=== PATIENT | female | born 1960 | race Caucasian/White ===

== ENCOUNTER 2022-09-08 12:21 | Emergency (ER) | payer OTHER ==
[~2022-09-08] VITALS: Ht 157.5 cm; Wt 72.6 kg
[~2022-09-08 12:21] MED LIST: AMOX1TAB5 PO; ANTIVERT25 MG; DRAMAMINE50 M1; LANTUS100 U/ML; LASIX40 MG; SUDAFED30 MG; SYNTHROID112 MCG; XANAX1 MG
[2022-09-08] MEDS ORDERED: DUI500 PO (20:06)
[2022-09-08] MEDS ORDERED: ZOFRAN8 MG PO (20:06)
[2022-09-08] MEDS ORDERED: TRAM1TAB98 PO (20:06)
== END 2022-09-08 20:11 | disposition home or self-care (01) ==
LOC: ER 12:21
DX: K58.9 Irritable bowel syndrome, unspecified (principal); N12 Tubulo-interstitial nephritis, not specified as acute or chronic; E11.9 Type 2 diabetes mellitus without complications; Z79.4 Long term (current) use of insulin

== ENCOUNTER 2023-05-22 12:43 | Emergency (ER) | payer OTHER ==
[~2023-05-22] VITALS: Ht 157.5 cm; Wt 70.8 kg
[~2023-05-22 12:43] MED LIST changes: +DUI500 PO; +TRAM1TAB98 PO; +ZOFRAN8 MG PO
[2023-05-22 16:14] LABS: PH,URINE 5.5 (5.0-8.0); URINE APPEARANCE Clear; URINE BILIRRUBIN Negative (NEGATIVE); URINE BLOOD Negative; URINE COLOR Yellow; URINE GLUCOSE Negative (NEGATIVE); URINE LEUKOCYTE Negative; URINE NITRATE Negative; URINE PROTEIN Negative (NEGATIVE); URINE UROBILINOGEN 0.2 E.U./dl
[2023-05-22 16:15] LABS: HEMATOCRIT 37.2 % (36.0-45.00); HEMOGLOBIN 12.5 g/dL (12.0-15.00); MEAN CELL VOLUME 93.1 fL (80.00-100.00); MEAN CORPUSCULAR HEMOGLOBIN 31.3 pg (27.00-32.0); MEAN CORPUSCULAR HGB CONC 33.6 g/dl (32.0-36.0); PLATELET COUNT 320 K/uL (150-450); RED BLOOD COUNT 3.99 M/uL (4.00-6.00); RED CELL DISTRIBUTION WIDTH 13.5 % (11.5-14.5)
[2023-05-22 16:17] LABS: URINE BACTERIA 6.3 uL (0.0-1933)
[2023-05-22 16:24] LABS: ABG PH 7.434 (7.35-7.45); ABG PO2 108.4 mmHg (80-100); ABG pCO2 35.8 mmHg (35-45); BASE EXCESS -0.3 mmol/l; BICARBONATE 23.5 mmol/l (23-25); SaO2 98.4 %
[2023-05-22 16:25] LABS: URINE EPITHELIAL CELLS 0.9 uL (0.0-38.8); URINE RBC 0.8 uL (0.0-20.8); URINE WBC 0.3 uL (0.0-23.2)
[2023-05-22 16:25] LABS: Tco2 24.6 mmol/l; allen test SATISFACTORY; o2 21 %; puncture site RADIAL RIGHT
[2023-05-22 16:34] LABS: CALCIUM 8.9 mg/dL (8.5-10.1); CREATININE SERUM 1.06 mg/dL (0.55-1.02); GFR 52.02; POTASSIUM 4.3 mEq/L (3.5-5.1)
[2023-05-22] MEDS ORDERED: DOLOGESIC-DF 51 EACH PO (17:40)
== END 2023-05-22 18:32 | disposition home or self-care (01) ==
LOC: ER 12:43
PROVIDERS: Nurse Practitioner Family
DX: R07.89 Other chest pain (principal); M19.90 Unspecified osteoarthritis, unspecified site; G62.9 Polyneuropathy, unspecified; Z86.79 Personal history of other diseases of the circulatory system; E03.9 Hypothyroidism, unspecified; J32.8 Other chronic sinusitis
CPT/HCPCS: 82803; 93005; 96372; 99284; J1100; J2405

== ENCOUNTER 2024-09-24 00:27 | Emergency (ER) | payer OTHER ==
[~2024-09-24] VITALS: Ht 157.5 cm; Wt 68.0 kg
[~2024-09-24 00:27] MED LIST changes: +DOLOGESIC-DF 51 EACH PO
[2024-09-24] MEDS ORDERED: DILTIAZEM HCL60 MG PO (00:58)
[2024-09-24] MEDS ORDERED: ALPRAZOLAM2 MG PO (00:58)
[2024-09-24] MEDS ORDERED: IBUPROFEN800 MG PO (00:58)
[2024-09-24] MEDS ORDERED: RESTORIL30 MG PO (00:58)
[2024-09-24] MEDS ORDERED: KETOROLAC TROMETHAMINE 60 MG VIAL IM STA (02:05)
[2024-09-24] MEDS ORDERED: KETOROLAC TROMETHAMINE 60 MG VIAL IM ONE (02:06)
[2024-09-24 02:31] LABS: HEMATOCRIT 35.6 % (36.0-45.00); HEMOGLOBIN 12.1 g/dL (12.0-15.00); MEAN CELL VOLUME 92.5 fL (80.00-100.00); MEAN CORPUSCULAR HEMOGLOBIN 31.4 pg (27.00-32.0); PLATELET COUNT 330 K/uL (150-450); RED BLOOD COUNT 3.85 M/uL (4.00-6.00); RED CELL DISTRIBUTION WIDTH 13.8 % (11.5-14.5)
[2024-09-24 03:01] LABS: ALBUMIN 3.7 gm/dL (3.4-5.0); BILIRUBIN TOTAL 0.3 mg/dL (0.3-1.2); CALCIUM 10.1 mg/dL (8.5-10.1); CREATININE SERUM 1.09 mg/dL (0.55-1.02); GFR 50.22; GLOBULINA 3.4 G/DL (2.4-3.5); POTASSIUM 4.36 mEq/L (3.5-5.1); TOTAL PROTEIN 7.1 gm/dL (6.4-8.2)
[2024-09-24 03:56] LABS: URINE APPEARANCE Clear; URINE BILIRRUBIN Negative (NEGATIVE); URINE BLOOD Negative; URINE COLOR Yellow; URINE GLUCOSE Negative (NEGATIVE); URINE KETONE Negative (NEGATIVE); URINE LEUKOCYTE Negative; URINE NITRATE Negative; URINE PROTEIN Negative (NEGATIVE)
[2024-09-24 04:00] LABS: URINE BACTERIA 997.4 uL (0.0-1933); URINE EPITHELIAL CELLS 23.2 uL (0.0-38.8); URINE RBC 5.8 uL (0.0-20.8); URINE WBC 7.4 uL (0.0-23.2)
[2024-09-24] MEDS ORDERED: MELOXICAM15 MG PO (06:29)
== END 2024-09-24 06:43 | disposition home or self-care (01) ==
LOC: ER 00:27
PROVIDERS: General Practice
DX: M94.0 Chondrocostal junction syndrome [Tietze] (principal); M19.90 Unspecified osteoarthritis, unspecified site; I10 Essential (primary) hypertension; E11.9 Type 2 diabetes mellitus without complications; Z79.84 Long term (current) use of oral hypoglycemic drugs
CPT/HCPCS: 36415; 71046; 93005; 96372; 99283; J1885

== ENCOUNTER 2025-04-13 23:00 | Inpatient (IN) | payer OTHER ==
[~2025-04-13] VITALS: Ht 157.5 cm; Wt 65.8 kg
[~2025-04-13 23:00] MED LIST changes: +ALPRAZOLAM2 MG PO; +DILTIAZEM HCL60 MG PO; +IBUPROFEN800 MG PO; +MELOXICAM15 MG PO; +RESTORIL30 MG PO
[2025-04-13] MEDS ORDERED: NITROGLYCERIN IN 5 % DEXTROSE 50 MG/250 ML BOTTLE IV ONE (23:39)
[2025-04-13] MEDS ORDERED: NITROGLYCERIN 250 ML IV SCH (23:45)
[2025-04-13] MEDS ORDERED: DOPamine HCL IN DEXTROSE 5 % 250 ML IV SCH (23:45)
[2025-04-13] MEDS ORDERED: NITROGLYCERIN0.4 MG SL (23:46)
[2025-04-13 23:59] LABS: BASO % 0.6 % (0.1-1.2); EOS # 0.15 (0.04-0.54); EOS % 1.5 % (0.7-7.0); LYMPH # 3.11 (1.18-3.74); LYMPH % 31.8 % (19.3-53.1); MEAN PLATELET VOLUME 9.30 fl (9.4-12.4); MONO # 0.81 (0.24-0.82); MONO % 8.3 % (4.7-12.5); NEUT # 5.61 (1.56-6.13); NEUT % 57.4 % (34.0-71.1); RED CELL DISTRIBUTION WIDTH 13.2 % (11.6-14.4)
--- NOTE | 2025-04-14 | NUR ---
SE RECIBE FEMINA ALERTA Y ORIENTADA X3 EN AMBULACIA, SE OBSERVA SOMNOLIENTA. LA MISMA VERBALIZA PRESENTA DOLOR DE PECHO, NAUSEAS Y QUE "LA COMIDA NO LE PASA" Y TIENE QUE PROVOCARSE EL VOMITO. SE KIN BP MANUAL PRESENTA 70/40, SE RALIZA EKG, SE PRESENA A DR SANCHEZ Y SE UBICA EN AREA DE CRITICO Y SE CONECTA A MONITOR CARDIA Y OXIMETRIA DE [place]. CANAALIZA X2 R+ ARM PATENTES DEA DE EDEMA Y ERITEMA EN H/L.
[2025-04-14 00:28] LABS: INR 0.98
[2025-04-14 00:31] LABS: ALT/SGPT 16.0 U/L (12-78); AST/SGOT 13.0 U/L (15-37); BILIRUBIN TOTAL 0.38 mg/dL (0.3-1.2); BUN CREA RATIO 16.0 (7.0-25.0); CREATININE SERUM 1.46 mg/dL (0.55-1.02); GFR 35.73; GLOBULINA 3.2 G/DL (2.4-3.5); GLUCOSE FASTING 120.0 mg/dL (65-100); OSMOLALITY SERUM 286.0 MOSM/KG (275-295)
--- NOTE | 2025-04-14 01:47 | NUR ---
SE EXTRAEN MUESTRAS DE LABORATORIO Y SE ADMINISTRAN MEDICAMENTOS LOLA ORDEN MEDICA.
--- NOTE | 2025-04-14 08:06 | NUR ---
PTE ALERTA Y ORIENTADA X3 EN CAMA EN POSICION SEMI SENTADA CON BARANDAS ELEVADAS POR CALVIN SEGURIDAD. PTE CONECTADA A MONITOR CARDIACO Y OXIMETRIA. PTE CON DRIP DE DOPAMINE @ 30ML/HR. PTE CON ABDOMEN BLANDO AL TACTO Y PERISTALSIS PRESENTE. PTE NO PRESENTA EDEMA EN EXTREMIDADES INFERIORES. PTE EN POSICION [place]. SE KATIE S/V Y SE MANTIENE BAJO OBSERVACION POR CAMBIO.
[2025-04-14] MEDS ORDERED: DOPamine HCL 400MG/D5w 250ML PLAST..BAG IV ONE ×2 (09:35→17:59)
[2025-04-14] MEDS ORDERED: ACETAMINOPHEN 500 MG GEL..CAP PO ONE (12:25)
[2025-04-14] MEDS ORDERED: 0.9 % SODIUM CHLORIDE 1,000 ML IV SCH ×2 (14:15→14:30)
[2025-04-14] MEDS ORDERED: DEXTROSE 50 % IN WATER 0.5 G/ML DISP.SYRIN IV PRN (14:45)
[2025-04-14] MEDS ORDERED: ONDANSETRON HCL 4 MG in 0.9 % SODIUM CHLORIDE 50 ML IV PRN (14:45)
[2025-04-14] MEDS ORDERED: INSULIN LISPRO 1,000 UNIT/10 ML UNITS SUBCUTANEO PRN (14:45)
[2025-04-14] MEDS ORDERED: FAMOTIDINE/PF 20 MG in 0.9 % SODIUM CHLORIDE 8 ML IV PUSH SCH (14:46)
[2025-04-14] MEDS ORDERED: ENOXAPARIN SODIUM 40 MG/0.4 ML SYRINGE SUBCUTANEO SCH (14:51)
[2025-04-14] MEDS ORDERED: ACETAMINOPHEN 325 MG TABLET PO PRN (15:00)
[2025-04-14 15:30] VITALS: BP 100/40; O2SAT 98
[2025-04-14 17:09] LABS: ALT/SGPT 16 U/L (12-78); AST/SGOT 14 U/L (15-37); BILIRUBIN TOTAL 0.52 mg/dL (0.3-1.2); BILIRUBIN,CONJUGATED < 0.10 mg/dL (0.0-0.2)
[2025-04-14 17:33] LABS: T4 FREE 1.31 NG/ML (0.76-1.46)
[2025-04-14 17:34] LABS: TSH 0.292 uIU/mL (0.358-3.74)
[2025-04-14 18:09] LABS: URINE APPEARANCE Clear; URINE BILIRRUBIN Negative (NEGATIVE); URINE BLOOD Negative; URINE COLOR Yellow; URINE GLUCOSE Negative (NEGATIVE); URINE KETONE Negative (NEGATIVE); URINE LEUKOCYTE Negative; URINE NITRATE Negative; URINE PROTEIN Negative (NEGATIVE); URINE UROBILINOGEN 0.2 E.U./dl
[2025-04-14 18:13] LABS: URINE BACTERIA 140.3 uL (0.0-1933); URINE EPITHELIAL CELLS 13.0 uL (0.0-38.8); URINE RBC 20.0 uL (0.0-20.8)
[2025-04-14 18:21] LABS: URINE CAST 0.14 uL (0.0-1.40); URINE WBC 1.6 uL (0.0-23.2)
[2025-04-14 23:00] VITALS: BP 102/79; O2SAT 100
[2025-04-15] VITALS (11 sets, daily range): BP systolic 90–137; BP diastolic 37–56; O2SAT 98–100
[2025-04-15] MEDS ORDERED: LEVOTHYROXINE SODIUM 112 MCG TABLET PO SCH (06:00)
[2025-04-15] MEDS ORDERED: DOPamine HCL IN DEXTROSE 5 % 250 ML IV SCH (07:15)
[2025-04-15] MEDS ORDERED: ACETAMINOPHEN 325 MG TABLET PO ONE (08:00)
[2025-04-15] MEDS ORDERED: MIDODRINE HCL 5 MG TABLET PO SCH (12:37)
[2025-04-15 15:05] LABS: BASO % 0.3 % (0.1-1.2); EOS # 0.04 (0.04-0.54); EOS % 0.6 % (0.7-7.0); LYMPH # 1.19 (1.18-3.74); LYMPH % 19.0 % (19.3-53.1); MEAN PLATELET VOLUME 9.60 fl (9.4-12.4); MONO # 0.35 (0.24-0.82); MONO % 5.6 % (4.7-12.5); NEUT # 4.66 (1.56-6.13); NEUT % 74.3 % (34.0-71.1); RED CELL DISTRIBUTION WIDTH 13.0 % (11.6-14.4)
[2025-04-15 15:37] LABS: ALT/SGPT 14.0 U/L (12-78); AST/SGOT 14.0 U/L (15-37); BILIRUBIN TOTAL 0.29 mg/dL (0.3-1.2); BUN CREA RATIO 27.0 (7.0-25.0); CREATININE SERUM 0.52 mg/dL (0.55-1.02); GFR 117.62; GLOBULINA 2.9 G/DL (2.4-3.5); GLUCOSE FASTING 118.0 mg/dL (65-100); OSMOLALITY SERUM 285.0 MOSM/KG (275-295)
[2025-04-16 02:32] VITALS: BP 132/70; O2SAT 99
[2025-04-16 05:42] VITALS: O2SAT 98
[2025-04-16] MEDS ORDERED: LEVOTHYROXINE SODIUM 100 MCG TABLET PO SCH (06:00)
[2025-04-16 08:57] VITALS: BP 121/43; O2SAT 95
[2025-04-16] MEDS ORDERED: MIDAZOLAM HCL 2 MG/2 ML VIAL IV ONE (15:30)
[2025-04-16] MEDS ORDERED: DIPHENHYDRAMINE HCL 50 MG/ML VIAL 1ML IV ONE ×2 (15:30)
[2025-04-16] MEDS ORDERED: fentaNYL CITRATE 50 MCG/ML AMPUL IV PUSH ONE (15:30)
[2025-04-16 16:10] VITALS: O2SAT 97
[2025-04-16 19:13] VITALS: BP 133/71; O2SAT 100
[2025-04-16 19:45] VITALS: O2SAT 99
[2025-04-16] MEDS ORDERED: FAMOTIDINE/PF 20 MG in 0.9 % SODIUM CHLORIDE 8 ML IV PUSH SCH (21:00)
[2025-04-17] VITALS (7 sets, daily range): BP systolic 144–160; BP diastolic 59–73; O2SAT 87–100
== END 2025-04-17 19:27 | disposition home or self-care (01) | DRG 316 ==
LOC: ER 23:00 → ICU-2 04-14 14:08 → MEDI 04-15 18:42
PROVIDERS: General Practice; ADMIT Internal Medicine; ATTEND Internal Medicine
PROC: BW21ZZZ Computerized Tomography (CT Scan) of Abdomen and Pelvis (ICD-10-PCS; principal; 2025-04-14)
PROC: BB24ZZZ Computerized Tomography (CT Scan) of Bilateral Lungs (ICD-10-PCS; 2025-04-14)
PROC: B246ZZZ Ultrasonography of Right and Left Heart (ICD-10-PCS; 2025-04-14)
PROC: 4A12X4Z Monitoring of Cardiac Electrical Activity, External Approach (ICD-10-PCS; 2025-04-15)
PROC: 0DB68ZX Excision of Stomach, Via Natural or Artificial Opening Endoscopic, Diagnostic (ICD-10-PCS; 2025-04-16)
DX: I95.89 Other hypotension (principal); R13.19 Other dysphagia; E86.0 Dehydration; K21.9 Gastro-esophageal reflux disease without esophagitis; R00.1 Bradycardia, unspecified